=== PATIENT | female | born 1955 | race Caucasian/White ===

== ENCOUNTER → 2017-12-05 | Outpatient (CLI) | payer OTHER ==
[~2017-12-05] MED LIST: AMLO5 PO; AMOCLA875 PO; ASPI325; ASPI325 PO; ASPI81CH PO; ASPI81EC PO; ATOR10; ATOR10 PO; ATOR40TA PO; Aspirin EC81 MG PO; CARV3.125 PO; CIPR500 PO; Ceftriaxone2 G1 IV; Coumadin5 MG PO; Crutch1 EACH MISC; ENOX30I SC; FURO20 PO; FURO40 PO; HYDACE5 PO; K-Dur20 MEQ PO; Klor-Con 1010 MEQ PO; LEVO750 PO; LISI20 PO; LOSHYD PO; Lasix20 MG PO; Lisinopril2.5 MG PO; Lopressor 25 mg25 MG PO; MECL25 PO; METO25 PO; METO25ER PO; METO50 PO; MULTIVITAMIN PO; Norco 5-325 Ta1 EACH PO; Norvasc5 MG PO; ONDA8ODT MM; PANT20 PO; PANT40 PO; PARO20; PARO20 PO; PARO30 PO; POTA10T PO; POTCHL20ER PO; PROM25 PO; RIFA300 PO; ROSU10TA PO; RXHYDACE PO; RXONDA4ODT MM; SPIR25 PO; WARF1 PO; WARF4 PO; WARF5 PO; ZESTORETIC 20-121 EA PO; ZOLP5 PO; [UNRECOGNIZED DRUG - REMARK]; [UNRECOGNIZED DRUG - REMARK] PO
[2017-12-05 18:18] LABS: Bilirubin, Urine Neg (Neg); Blood, Urine 4+ (Neg); Glucose Qualitative, Urine Neg (Neg); Ketones, Urine Neg (Neg); Leukocyte Esterase, Urine 3+ (Neg); Nitrite, Urine Neg (Neg); Protein, Urine 1+ (Neg); Specific Gravity, Urine 1.015 (1.003-1.022); Urobilinogen, Urine NORM (Normal)
[2017-12-05 18:32] LABS: Appearance, Urine Clear (Clear); Color, Urine Yellow (P-Yellow)
[2017-12-05 18:33] LABS: Bacteria Few /hpf; Red Blood Cells, Urine 50-100 /hpf (0-2); Squamous Epithelial Cells Not Seen /hpf (Few); White Blood Cells, Urine 50-100 /hpf (0-5)
== END | disposition home or self-care (01) ==
LOC: LAB 15:30 → LAB SHORT 15:30
PROVIDERS: Nurse Practitioner Family
DX: R31.9 Hematuria, unspecified (principal)
CPT/HCPCS: 81001; 87077; 87086; 87186

== ENCOUNTER 2018-11-04 06:25 | Day surgery (SDC) | payer OTHER ==
[~2018-11-04] VITALS: Ht 157.5 cm; Wt 72.0 kg
[~2018-11-04 06:25] MED LIST changes: +ABAT250V; +ESCI20 PO; +[UNRECOGNIZED DRUG - OTHER] PO
--- NOTE | 2018-11-04 07:13 | NUR ---
DR RODRÍGUEZ IN ROOM TO SEE PT.
[2018-11-04] MEDS ORDERED: VIT D PO (07:32)
--- NOTE | 2018-11-04 07:39 | NUR ---
DR TORRES ARRIVED AND TIMEOUT COMPLETED FOR KYLE.
--- NOTE | 2018-11-04 07:52 | NUR ---
KYLE PROBE OUT; PT TOLERATED WELL.
--- NOTE | 2018-11-04 08:15 | NUR ---
PT EASILY AWAKEN. PT'S IN ROOM TALKING WITH PT. CALL LIGHT IN REACH.
--- NOTE | 2018-11-04 09:14 | NUR ---
PT DRANK WATER WITH NO ASPIRATION. DISCHARGE INSTRUCTIONS REVIEWED ALL QUESTIONS ANSWERED. 20 G IV DISCONTINUED FROM RIGHT HAND WITH INTACT CANNULA. PT ESORTED OUT VIA WHEELCHAIR ESCORT.
== END 2018-11-04 22:59 | disposition home or self-care (01) ==
LOC: MHTC 06:25
DX: I35.1 Nonrheumatic aortic (valve) insufficiency (principal); I77.0 Arteriovenous fistula, acquired; R53.83 Other fatigue; F17.210 Nicotine dependence, cigarettes, uncomplicated; I11.9 Hypertensive heart disease without heart failure; E78.5 Hyperlipidemia, unspecified; I25.10 Atherosclerotic heart disease of native coronary artery without angina pectoris; Z88.5 Allergy status to narcotic agent; Z95.2 Presence of prosthetic heart valve; Z88.8 Allergy status to other drugs, medicaments and biological substances; Z95.1 Presence of aortocoronary bypass graft
CPT/HCPCS: 93312; 93325; J2370; J2704; J7120

== ENCOUNTER → 2018-12-02 | Outpatient (CLI) | payer OTHER ==
[~2018-12-02] MED LIST changes: +Anti-Diarrheal2 MG PO; +VIT D PO
[2018-12-02 19:42] LABS: Campylobacter Sp Not Detected (NOT DETECT)
[2018-12-02 19:43] LABS: Adenovirus F 40/41 Not Detected (NOT DETECT); Astrovirus Not Detected (NOT DETECT); Cryptosporidium Not Detected (NOT DETECT); Cyclospora Cayetanensis Not Detected (NOT DETECT); E. Coli O157 Not Detected (NOT DETECT); Entamoeba Histolytica Not Detected (NOT DETECT); Enteroaggregative E. coli-EAEC Not Detected (NOT DETECT); Enteropathogenic E. coli-EPEC Not Detected (NOT DETECT); Enterotoxigenic E. coli-ETEC Not Detected (NOT DETECT); Giardia Lamblia Not Detected (NOT DETECT); Norovirus GI/GII Not Detected (NOT DETECT); Plesiomonas Shigelloides Not Detected (NOT DETECT); Rotavirus A Not Detected (NOT DETECT); Salmonella Sp Not Detected (NOT DETECT); Sapovirus Not Detected (NOT DETECT); Shiga Toxin-prod E. coli-STEC Not Detected (NOT DETECT); Shigella/Enteroin E. coli-EIEC Not Detected (NOT DETECT); Vibrio Cholerae Not Detected (NOT DETECT); Vibrio Sp Not Detected (NOT DETECT); Yersinia Enterocolitica Not Detected (NOT DETECT)
[2018-12-03 14:12] LABS: Stool Occult Bld Immuno 1 Positive (NEGATIVE)
== END | disposition home or self-care (01) ==
LOC: LAB 16:49 → LAB SHORT 16:49 → EDSTATUS 11-12 16:25 → LAB FUT 11-12 16:25
PROVIDERS: Internal Medicine Gastroenterology
DX: Z12.11 Encounter for screening for malignant neoplasm of colon (principal); R19.7 Diarrhea, unspecified
CPT/HCPCS: 87015; 87045; 87046; 87205; 87507; 87899; G0328

== ENCOUNTER 2018-12-25 07:04 | Day surgery (SDC) | payer OTHER ==
[~2018-12-25] VITALS: Ht 154.9 cm; Wt 71.7 kg
[~2018-12-25 07:04] MED LIST changes: -Anti-Diarrheal2 MG PO
[2018-12-25] MEDS ORDERED: Anti-Diarrheal2 MG PO (07:18)
--- NOTE | 2018-12-25 07:28 | NUR ---
History, Chart, Medications and Allergies reviewed before start of procedure. Lungs clear T/O to Auscultation. Patient confirms NPO status and agrees with scheduled surgery. Patient states colon prep results clear. Pre-Op teaching done. Pt verbalizes understanding.
--- NOTE | 2018-12-25 08:00 | NUR ---
12/25/18 0800 IsidroZev PATIENT DETERMINED TO BE ASA APPROPRIATE FOR PROPOFOL SEDATION PRIOR TO START OF PROCEDURE BY 3-LEAD EKG REVIEWED WITH PHYSICIAN PRIOR TO START OF PROCEDURE.Patient to ENDO 1History, Chart, Medications and Allergies reviewed before start of procedure.MONITOR INTACT WITH CONTINUOUS PULSE OXIMETRY AND INTERMITTENT BP.O2 VIA N/C INTACT THROUGHOUT SEDATION/PROCEDURE.
--- NOTE | 2018-12-25 08:58 | NUR ---
Discharge instructions reviewed with patient. Patient verbalizes understanding. Copy given to patient to take home. Patient States Post-Procedure ride home has been arranged.
--- NOTE | 2018-12-25 09:15 | NUR ---
Discharged via wheelchair to private car for ride home.
== END 2018-12-25 09:14 | disposition home or self-care (01) ==
LOC: ORSCMMR 07:04 → ORD 08:00 → ORSCMMR 08:00
PROVIDERS: Internal Medicine Gastroenterology
PROC: 0DBK8ZX Excision of Ascending Colon, Via Natural or Artificial Opening Endoscopic, Diagnostic (ICD-10-PCS; principal; 2018-12-25 08:00)
PROC: 0DBN8ZX Excision of Sigmoid Colon, Via Natural or Artificial Opening Endoscopic, Diagnostic (ICD-10-PCS; principal; 2018-12-25 08:00)
PROC: 0DBM8ZX Excision of Descending Colon, Via Natural or Artificial Opening Endoscopic, Diagnostic (ICD-10-PCS; principal; 2018-12-25 08:00)
PROC: 0DBE8ZX Excision of Large Intestine, Via Natural or Artificial Opening Endoscopic, Diagnostic (ICD-10-PCS; principal; 2018-12-25 08:00)
PROC: 0DBP8ZX Excision of Rectum, Via Natural or Artificial Opening Endoscopic, Diagnostic (ICD-10-PCS; principal; 2018-12-25 08:00)
PROC: 0DBL8ZX Excision of Transverse Colon, Via Natural or Artificial Opening Endoscopic, Diagnostic (ICD-10-PCS; principal; 2018-12-25 08:00)
PROC: 0DBB8ZX Excision of Ileum, Via Natural or Artificial Opening Endoscopic, Diagnostic (ICD-10-PCS; principal; 2018-12-25 08:00)
DX: K92.1 Melena (principal); D12.2 Benign neoplasm of ascending colon; D12.3 Benign neoplasm of transverse colon; K63.5 Polyp of colon; I25.10 Atherosclerotic heart disease of native coronary artery without angina pectoris; F32.9 Major depressive disorder, single episode, unspecified; Z79.01 Long term (current) use of anticoagulants; Z79.82 Long term (current) use of aspirin; Z79.899 Other long term (current) drug therapy; F17.210 Nicotine dependence, cigarettes, uncomplicated
CPT/HCPCS: 88305; J2704; J7120

== ENCOUNTER → 2019-03-18 | Outpatient (CLI) | payer OTHER ==
[~2019-03-18] MED LIST changes: +Anti-Diarrheal2 MG PO
[2019-03-18 13:15] LABS: Source, Urine Clean Catch
[2019-03-18 13:26] LABS: Appearance, Urine Clear (Clear); Bilirubin, Urine Neg (Neg); Blood, Urine 3+ (Neg); Color, Urine Yellow (P-Yellow); Glucose Qualitative, Urine Neg (Neg); Ketones, Urine Neg (Neg); Leukocyte Esterase, Urine 1+ (Neg); Nitrite, Urine Neg (Neg); Protein, Urine Neg (Neg); Specific Gravity, Urine 1.015 (1.003-1.022); Urobilinogen, Urine NORM (Normal)
[2019-03-18 13:42] LABS: Bacteria Rare /hpf; Squamous Epithelial Cells Rare /hpf (Few); White Blood Cells, Urine 0-2 /hpf (0-5)
== END ==
LOC: LAB SHORT 13:12 → LAB 13:12
PROVIDERS: Nurse Practitioner Family
DX: R31.9 Hematuria, unspecified (principal)
CPT/HCPCS: 81001; 87086

== ENCOUNTER → 2019-03-18 | Outpatient (CLI) | payer OTHER | END | disposition home or self-care (01) | LOC: PLD 13:31 → LAB SHORT 13:31 | DX: R31.9 Hematuria, unspecified (principal) | CPT/HCPCS: 88108 ==